=== PATIENT | female | born 1995 | race Caucasian/White ===

== ENCOUNTER 2018-03-15 14:19 | Emergency (ER) | payer OTHER ==
[2018-03-15] MEDS ORDERED: SODIUM CHLORIDE 1,000 ML IV STA (14:43)
--- NOTE | 2018-03-15 14:55 | PDOC ---
History of Present Illness - General Chief Complaint: Diarrhea Stated Complaint: DIARRHEA Time Seen by Provider: 03/15/18 14:38 History Source: Patient - History of Present Illness Timing/Duration: reports: constant Past History - Past Medical History Allergies/Adverse Reactions: Allergies Allergy/AdvReac Type Severity Reaction Status Date / Time No Known Allergies Allergy Verified 03/15/18 14:35 Home Medications: Ambulatory Orders Albuterol Sulfate Inhaler - [Ventolin HFA Inhaler -] 1 - 2 inh PO PRN PRN Oxycodone HCl/Acetaminophen [Percocet 5/325 -] 1 - 2 tab PO Q6H #20 tab Asthma: Yes COPD: No Other medical history: KIDNEY PROBLEMS - Immunization History Immunization Up to Date: Yes - Suicide/Smoking/Psychosocial Hx Smoking Status: No Smoking History: Never smoked Have you smoked in the past 12 months: No Number of Cigarettes Smoked Daily: 0 Hx Alcohol Use: No Drug/Substance Use Hx: No Substance Use Type: None Review of Systems - Review of Systems Constitutional: No: Chills, Fever ABD/GI: Yes: Diarrhea, Abdominal cramping. No: Blood Streaked Bowels, Nausea, Rectal Bleeding, Vomiting, Tarry Stools : No: Dysuria, Flank Pain, Hematuria *Physical Exam - Vital Signs Last Vital Signs Temp Pulse Resp BP Pulse Ox 98.3 F 103 H 18 127/80 100 03/15/18 14:35 03/15/18 14:35 03/15/18 14:35 03/15/18 14:35 03/15/18 14:35 - Physical Exam General Appearance: Yes: Appropriately Dressed. No: Apparent Distress HEENT: positive: Normal Voice Gastrointestinal/Abdominal: positive: Normal Bowel Sounds, Tender, Soft. negative: Distended, Guarding, Rebound Musculoskeletal: negative: CVA Tenderness Integumentary: positive: Dry, Warm Neurologic: positive: Fully Oriented, Alert, Normal Mood/Affect Moderate Sedation - Procedure Monitoring Vital Signs: Procedure Monitoring Vital Signs Temperature 98.3 F 03/15/18 14:35 Pulse Rate 103 H 03/15/18 14:35 Respiratory Rate 18 03/15/18 14:35 Blood Pressure 127/80 03/15/18 14:35 O2 Sat by Pulse Oximetry (%) 100 03/15/18 14:35 ED Treatment Course - LABORATORY CBC & Chemistry Diagram: 03/15/18 15:00 03/15/18 15:00 Medical Decision Making - Medical Decision Making 03/15/18 14:46 22 yo F, h/o asthma, 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 Pt reports numerous e/o NB, watery diarrhea x 8 days. At some point developed diffuse abd cramping. Reports that everything she eats "goes through me" and has anorexia and weakness now. No n/v/f/c. 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 Pt unable to give stool sample here. Reports improvement w/ IVF and tylenol and reports being hungry now. Rpt HR 86 as per IGNITION EXPERT. Dc w/ supportive tx w/ strict instructions for hydration. Reasons to return to ED d/w pt 03/15/18 18:44 *DC/Admit/Observation/Transfer Diagnosis at time of Disposition: Diarrhea Qualifiers: Diarrhea type: unspecified type Qualified Code(s): R19.7 - Diarrhea, unspecified - Discharge Dispostion Disposition: HOME Condition at time of disposition: Improved - Referrals Referrals: Yesy Lewis MD [Primary Care Provider] - - Patient Instructions Printed Discharge Instructions: Viral Gastroenteritis Additional Instructions: Acute viral gastroenteritis is usually self-limited and is treated with supportive measures Maintain adequate hydration such as water, sports drinks and broths Eat as tolerated If symptoms persists and/or you develop new symptoms such as bloody stools, vomiting, severe abdominal pain or fever, return to the ER Otherwise, please follow with your PMD - Post Discharge Activity
[2018-03-15 15:11] VITALS: BP 127/80; PULSE 103; TEMP 98.3; BMI 27.4
[2018-03-15 15:44] LABS: BASO % 0.6 % (0-2.0); EOS % 1.4 % (0-4.5); HEMATOCRIT 43.1 % (32.4-45.2); HEMOGLOBIN 14.9 GM/dL (10.7-15.3); LYMPH % 30.9 % (8-40); MCH 31.5 pg (25.7-33.7); MCHC 34.4 g/dl (32.0-36.0); MEAN CELL VOLUME 91.4 fl (80-96); MEAN PLT VOLUME 8.3 fl (7.5-11.1); MONO % 6.1 % (3.8-10.2); PLATELET COUNT 201 K/MM3 (134-434); RBC 4.72 M/mm3 (3.60-5.2); RDW 12.1 % (11.6-15.6)
--- NOTE | 2018-03-15 15:45 | PDOC ---
*Physical Exam - Vital Signs Last Vital Signs Temp Pulse Resp BP Pulse Ox 98.3 F 103 H 18 127/80 100 03/15/18 14:35 03/15/18 14:35 03/15/18 14:35 03/15/18 14:35 03/15/18 14:35 ED Treatment Course - LABORATORY CBC & Chemistry Diagram: 03/15/18 15:00 03/15/18 15:00 - Medications Given in the ED: ED Medications Discontinued Medications Generic Name Dose Route Start Last Admin Trade Name Freq PRN Reason Stop Dose Admin Sodium Chloride 1,000 mls @ 1,000 mls/hr 03/15/18 14:43 03/15/18 15:38 Normal Saline - IV 03/15/18 15:42 1,000 mls/hr ASDIR STA Administration Medical Decision Making - Medical Decision Making 03/15/18 15:45 Pt seen by the Advanced Practice Provider under my direct supervision Ancillary studies reviewed I agree with plan as outlined by the Advanced Practice Provider RADHA Hernandez *DC/Admit/Observation/Transfer - Referrals Referrals: Yesy Lewis MD [Primary Care Provider] - - Patient Instructions - Post Discharge Activity
[2018-03-15 16:01] LABS: ALBUMIN 4.2 g/dl (3.4-5.0); ALK PHOS 63 U/L (45-117); ANION GAP 8 MMOL/L (8-16); BILIRUBIN,TOTAL 0.4 mg/dL (0.2-1); BLOOD UREA NITROGEN 8 mg/dL (7-18); CHLORIDE 107 mmol/L (98-107); CO2 24 mmol/L (21-32); CREATININE 0.8 mg/dL (0.55-1.3); GLUCOSE,RANDOM 72 mg/dL (74-106); POTASSIUM 3.8 mmol/L (3.5-5.1); SGOT/AST 22 U/L (15-37); SGPT/ALT 22 U/L (13-61); SODIUM 139 mmol/L (136-145)
[2018-03-15 16:15] LABS: URINE APPEARANCE CLEAR; URINE BILIRUBIN NEGATIVE (<2.0 mg/dL); URINE COLOR YELLOW; URINE GLUCOSE (UA) NEGATIVE (NEGATIVE); URINE KETONE NEGATIVE (NEGATIVE); URINE LEUK ESTERASE NEGATIVE (NEGATIVE); URINE NITRITE NEGATIVE (NEGATIVE); URINE PROTEIN NEGATIVE (NEGATIVE); URINE UROBILINOGEN NEGATIVE mg/dL (0.2-1.0)
[2018-03-15 16:17] LABS: URINE MUCUS RARE
[2018-03-15] MEDS ORDERED: ACETAMINOPHEN 1000 MG/100 ML VIAL (NON FORMULARY) IVPB ONE (16:33)
[2018-03-15] MEDS ORDERED: ACETAMINOPHEN INJECTION 100 ML IVPB ONE (16:40)
== END 2018-03-15 17:31 | disposition home or self-care (01) ==
LOC: JER 14:19
PROC: 3E0337Z Introduction of Electrolytic and Water Balance Substance into Peripheral Vein, Percutaneous Approach (ICD-10-PCS; principal; 2018-03-15)
PROC: 3E033NZ Introduction of Analgesics, Hypnotics, Sedatives into Peripheral Vein, Percutaneous Approach (ICD-10-PCS; 2018-03-15)
DX: A08.4 Viral intestinal infection, unspecified (principal); B97.89 Other viral agents as the cause of diseases classified elsewhere; J45.909 Unspecified asthma, uncomplicated; N28.89 Other specified disorders of kidney and ureter
CPT/HCPCS: 36415; 80053; 81003; 81015; 84703; 85025; 99281-25; J0131; J7030